=== PATIENT | male | born 1995 | race Caucasian/White ===

== ENCOUNTER 2018-11-10 08:40 | Observation (INO) | payer OTHER ==
[~2018-11-10 08:40] MED LIST: ROCURONIUM BROMIDE INJ 50 MG/5 ML VIAL IV ONE; SUCCINYLCHOLINE CHLORIDE INJ 200 MG/10 ML VIAL ONE
--- NOTE | 2018-11-10 09:04 | ER Document Report ---
ED GI/ - General Mode of Arrival: Ambulatory Information source: Patient TRAVEL OUTSIDE OF THE [place] IN LAST 30 DAYS: No <ROCIO IGNACIO - Last Filed: 11/10/18 09:05> <RELL LAWLER - Last Filed: 11/10/18 11:01> - General Chief Complaint: Abdominal Pain Stated Complaint: STOMACH PAIN Time Seen by Provider: 11/10/18 08:54 Notes: 23-year-old male who presents to the emergency department today with complaints of epigastric and right upper quadrant abdominal pain that has been present intermittently for the last 2-3 months. Patient states that at 0300 this morning he was awoken by this abdominal pain. Patient states that last night he ate [employer] and then around midnight went to [employer]. Patient describes the pain as a "sharp" pain and he notices that his pain is always at night. Patient denies nausea or vomiting. (ROCIO IGNACIO) The patient reports that these middle the night attacks of abdominal pain are increasing in frequency and have caused him to be late getting to work in the morning recently. (RELL LAWLER) - Related Data Allergies/Adverse Reactions: No Known Allergies Allergy (Verified 11/10/18 08:40) Past Medical History - General Information source: Patient - Social History Smoking Status: Never Smoker Cigarette use (# per day): No Frequency of alcohol use: Social Drug Abuse: None Lives with: Family Family History: Reviewed & Not Pertinent <ROCIO IGNACIO - Last Filed: 11/10/18 09:05> Review of Systems - Review of Systems Constitutional: No symptoms reported EENT: No symptoms reported Cardiovascular: No symptoms reported Respiratory: No symptoms reported Gastrointestinal: See HPI, Abdominal pain. denies: Nausea, Vomiting Genitourinary: No symptoms reported Male Genitourinary: No symptoms reported Musculoskeletal: No symptoms reported Skin: No symptoms reported Hematologic/Lymphatic: No symptoms reported Neurological/Psychological: No symptoms reported -: Yes All other systems reviewed and negative <ROCIO IGNACIO - Last Filed: 11/10/18 09:05> Physical Exam <ROCIO IGNACIO - Last Filed: 11/10/18 09:05> - Vital signs Vitals: Temp Pulse Resp BP Pulse Ox 97.7 F 68 16 134/98 H 100 11/10/18 08:44 11/10/18 08:44 11/10/18 08:44 11/10/18 08:44 11/10/18 08:44 - Notes Notes: Physical Exam: General: Alert, appears well. HEENT: Normocephalic. Atraumatic. PERRL. Extraocular movements intact. Oropharynx clear. Neck: Supple. Non-tender. Respiratory: No respiratory distress. Clear and equal breath sounds bilaterally. Cardiovascular: Regular rate and rhythm. Abdominal: Right upper quadrant tenderness to palpation. No distension. Normal Bowel Sounds. Back: Non-tender. No deformity or step off. Extremities: Moves all four extremities. Upper extremities: Normal inspection. Normal ROM. Lower extremities: Normal inspection. No edema. Normal ROM. Neurological: Normal cognition. AAOx4. Normal speech. Psychological: Normal affect. Normal Mood. Skin: Warm. Dry. Normal color. (ROCIO IGNACIO) Course - Laboratory Result Diagrams: 11/10/18 09:18 11/10/18 09:18 - Diagnostic Test Radiology reviewed: Image reviewed, Reports reviewed - Gallbladder ultrasound shows gallstones without common bile duct or intrahepatic duct dilatation or filling defects. There is no gallbladder wall thickening or pericholecystic fluid. - Consults Dr. Reddy Time consulted: 10:30 Consulted provider: will come to ER <RELL LAWLER - Last Filed: 11/10/18 11:01> - Vital Signs Vital signs: Temp Pulse Resp BP Pulse Ox 97.7 F 68 16 134/98 H 100 11/10/18 08:44 11/10/18 08:44 11/10/18 08:44 11/10/18 08:44 11/10/18 08:44 - Laboratory Laboratory results interpreted by me: 11/10/18 11/10/18 09:18 09:18 WBC 14.3 H Seg Neutrophils % 88.4 H Lymphocytes % 6.2 L Absolute Neutrophils 12.7 H Glucose 121 H ALT 19 L Discharge <ROCIO IGNACIO - Last Filed: 11/10/18 09:05> - Discharge Admitting Provider: Surgicalist Unit Admitted: Surgical Floor <RELL LAWLER - Last Filed: 11/10/18 11:01> - Discharge Clinical Impression: Cholelithiasis and cholecystitis without obstruction Qualifiers: Cholelithiasis location: gallbladder Cholecystitis acuity: unspecified acuity Qualified Code(s): K80.10 - Calculus of gallbladder with chronic cholecystitis without obstruction Condition: Stable Disposition: ADMITTED INPATIENT Referrals: RUSTY KABA NP [NURSE PRACTITIONER] - Follow up as needed Scribe Attestation: 11/10/18 09:17 I personally performed the services described in the documentation, reviewed and edited the documentation which was dictated to the scribe in my presence, and it accurately records my words and actions. (RELL LAWLER) Scribe Documentation - Scribe Written by Scribe:: Pepe Lobo, 11/10/2018 0912 acting as scribe for :: Rosaline <ROCIO IGNACIO - Last Filed: 11/10/18 09:05>
[2018-11-10 09:33] LABS: APPEARANCE,URINE CLEAR; BILIRUBIN,URINE NEGATIVE (NEGATIVE); COLOR,URINE YELLOW; GLUCOSE, URINE NEGATIVE (NEGATIVE); KETONES,URINE NEGATIVE (NEGATIVE); LEUKOCYTE ESTERASE,URINE NEGATIVE (NEGATIVE); NITRITE,URINE NEGATIVE (NEGATIVE); PROTEIN,URINE NEGATIVE (NEGATIVE); URINE SPECIFIC GRAVITY 1.017; UROBILINOGEN,URINE NEGATIVE mg/dL (<2.0)
[2018-11-10 09:35] LABS: ABSOLUTE EOSINOPHILS # (AUTO) 0.1 10^3/uL (0.0-0.6); ABSOLUTE LYMPHOCYTES (AUTO) 0.9 10^3/uL (0.5-4.7); ABSOLUTE MONOCYTES (AUTO) 0.7 10^3/uL (0.1-1.4); ABSOLUTE NEUT (AUTO) 12.7 10^3/uL (1.7-8.2); BASOPHILS % (AUTO) 0.2 % (0-2); EOSINOPHILS % (AUTO) 0.4 % (0-6); HEMATOCRIT 42.5 % (37.9-51.0); HEMOGLOBIN 14.8 g/dL (13.5-17.0); LYMPHOCYTES % (AUTO) 6.2 % (13-45); MEAN CORPUSCULAR HEMOGLOBIN 29.8 pg (27.0-33.4); MEAN CORPUSCULAR HGB CONC 34.7 g/dL (32.0-36.0); MEAN CORPUSCULAR VOLUME 86 fl (80-97); MONOCYTES % (AUTO) 4.8 % (3-13); PLATELET COUNT 325 10^3/uL (150-450); RED BLOOD COUNT 4.96 10^6/uL (4.35-5.55); RED CELL DISTRIBUTION WIDTH 12.5 % (11.5-14.0); SEGMENTED NEUTROPHILS % (AUTO) 88.4 % (42-78); TOTAL CELLS COUNTED % (AUTO) 100 %; WHITE BLOOD COUNT 14.3 10^3/uL (4.0-10.5)
[2018-11-10 09:48] LABS: ALANINE AMINOTRANSFERASE 19 U/L (21-72); ALBUMIN 4.5 g/dL (3.5-5.0); ALKALINE PHOSPHATASE 65 U/L (38-126); ANION GAP 10 (5-19); ASPARTATE AMINO TRANSFERASE 17 U/L (17-59); BILIRUBIN,DIRECT 0.2 mg/dL (0.0-0.4); BILIRUBIN,TOTAL 0.4 mg/dL (0.2-1.3); BLOOD UREA NITROGEN 14 mg/dL (7-20); CALCIUM 9.7 mg/dL (8.4-10.2); CARBON DIOXIDE 28 mmol/L (22-30); CHLORIDE 105 mmol/L (98-107); GLUCOSE 121 mg/dL (75-110); POTASSIUM 4.6 mmol/L (3.6-5.0); SODIUM 142.9 mmol/L (137-145); TOTAL PROTEIN 7.3 g/dL (6.3-8.2)
--- NOTE | 2018-11-10 10:06 | RADIOLOGY REPORT (SQ) ---
EXAM DESCRIPTION: U/S ABDOMEN LIMITED W/O DOP COMPLETED DATE/TIME: 11/10/2018 9:58 am REASON FOR STUDY: RUQ abd pain COMPARISON: None. TECHNIQUE: Dynamic and static grayscale images acquired of the abdomen and recorded on PACS. Additio yue selected color Doppler and spectral images recorded. LIMITATIONS: None. FINDINGS: PANCREAS: No masses. Visualized pancreatic duct normal caliber. LIVER: No masses. Echotexture normal. LIVER VASCULATURE: Normal directional flow of the main portal vein and hepatic veins. GALLBLADDER: Echodensity along the dependent wall of gallbladder consistent with gallstones. No thic kening of gallbladder wall. No pericholecystic fluid collection. ULTRASOUND-DETECTED QUINTANA'S SIGN: Negative. INTRAHEPATIC DUCTS AND COMMON DUCT: CBD and intrahepatic ducts normal caliber. No filling defects. INFERIOR VENA CAVA: Normal flow. AORTA: No aneurysm. RIGHT KIDNEY: Normal size. Normal echogenicity. No solid or suspicious masses. No hydronephrosis. No calcifications. PERITONEAL AND RIGHT PLEURAL SPACE: No ascites or effusions. OTHER: No other significant finding. IMPRESSION: GALLSTONES. OTHERWISE NORMAL RIGHT UPPER QUADRANT ULTRASOUND. TECHNICAL DOCUMENTATION: JOB ID: [id number] [employer]- All Rights Reserved Reading location - IP/workstation name: [email or web address]
[2018-11-10] MEDS ORDERED: DEXTROSE 5%-NORMAL SALINE 1,000 ML IV ONE (10:39)
[2018-11-10] MEDS ORDERED: AMPICILLIN SOD/SULBACTAM 3 GM VIAL IV ONE (10:39)
[2018-11-10] MEDS ORDERED: FENTANYL CITRATE INJ/PF 100 MCG/2 ML AMPUL ONE (12:43)
[2018-11-10] MEDS ORDERED: MORPHINE SULFATE 10 MG/ML INJ ONE (12:44)
[2018-11-10] MEDS ORDERED: DEXAMETHASONE SOD PHOSPHATE INJ 4 MG/1 ML VIAL ONE (12:44)
[2018-11-10] MEDS ORDERED: PROPOFOL INJ 200 MG/20 ML VIAL IV ONE (12:44)
[2018-11-10] MEDS ORDERED: MIDAZOLAM 2 MG/2 ML INJ ONE (12:44)
[2018-11-10] MEDS ORDERED: ACETAMINOPHEN 1,000 MG/100 ML RTUPB IV ONE (12:44)
[2018-11-10] MEDS ORDERED: ONDANSETRON HCL INJ/PF 4 MG/2 ML SDV ONE (12:44)
[2018-11-10] MEDS ORDERED: BUPIVACAINE HCL 0.25 % INJ/PF (2.5 MG/1 ML) 30 ML VIAL ONE (12:50)
[2018-11-10] MEDS ORDERED: OXYCODONE-ACETAMINOPHEN 5-325 MG TABLET PO PRN ×2 (13:46)
[2018-11-10] MEDS ORDERED: PROMETHAZINE HCL INJ 25 MG/1 ML VIAL IV PRN ×2 (13:46)
[2018-11-10] MEDS ORDERED: MORPHINE SULFATE 10 MG/ML INJ IV PRN ×2 (13:46→14:15)
[2018-11-10] MEDS ORDERED: DIPHENHYDRAMINE HCL 50 MG/ML VIAL IV PRN (13:46)
[2018-11-10] MEDS ORDERED: FENTANYL CITRATE INJ/PF 100 MCG/2 ML AMPUL IV PRN ×3 (13:46)
[2018-11-10] MEDS ORDERED: MEPERIDINE HCL/PF INJ 25 MG/1 ML DISP.SYRIN IV PRN (13:46)
[2018-11-10] MEDS ORDERED: ONDANSETRON HCL INJ/PF 4 MG/2 ML SDV IV PRN (14:15)
[2018-11-10] MEDS ORDERED: HYDROCODONE/ACETAMINOPHEN 10-325 MG TABLET PO PRN (14:18)
--- NOTE | 2018-11-10 14:25 | Operative Report ---
Nonrecallable Operative Report DATE OF SURGERY: 11/10/18 PREOPERATIVE DIAGNOSIS: Cholecystitis POSTOPERATIVE DIAGNOSIS: Acute cholecystitis OPERATION: Laparoscopic cholecystectomy SURGEON: GIDEON BRADLEY ANESTHESIA: GA TISSUE REMOVED OR ALTERED: Gallbladder COMPLICATIONS: None apparent ESTIMATED BLOOD LOSS: Minimal PROCEDURE: Drains/implants: None. Procedure in detail: After informed consent was obtained, the patient was brought into the operating room and laid in the supine position. The area of the abdomen was prepped and draped in a normal sterile fashion. Dissection was carried through the subcutaneous tissue using sharp and blunt means. The cicatrix was identified, grasped with a Torie clamp, and retracted upwards. The linea alba fascia was incised sharply, the abdomen was entered sharply. The balloon trocar was inserted, and pneumoperitoneum was achieved. A 5 mm subxiphoid port was placed under direct laparoscopic visualization. 2 more 5 mm ports were placed in the right upper quadrant in similar fashion. Atraumatic graspers were placed through the 5 mm ports. The gallbladder was ret racted cephalad and laterally. It was very tense and distended. A cyst aspiration needle was used to aspirate approximately 120 cc of bile from the gallbladder. Once this was completed it was much easier to manipulate the gallbladder. Dissection was begun in the triangle of Calot. The cystic duct and cystic artery were fully visualized and skeletonized, seeing the liver through the triangle. Once the critical view of safety was obtained, the cystic duct and cystic artery were clipped and cut with laparoscopic instruments. The gallbladder was then removed from the liver using Bovie electrocautery. The gallbladder was grasped with a large clamp and pulled out of the umbilicus. The camera was reinserted. The hilum was inspected. It was found to be free of any leakage of blood or bile. The 5 mm trochars were then removed under direct laparoscopic visualization. The supraumbilical trocar was removed and pneumoperitoneum was relieved. The supraumbilical fascia was closed using 0 Vicryl suture in [id number] fashion. The overlying skin was closed using 4-0 Vicryl Rapide suture in subcuticular fashion. Dressings were placed, and the procedure was concluded. All sponge, instrument, and needle counts were correct x2. Condition: Stable.
--- NOTE | 2018-11-10 14:30 | PDOC H&P ---
History of Present Illness Admission Date/PCP: 11/10/18 11:07 Patient complains of: Right upper quadrant pain, nausea, vomiting. History of Present Illness: ALISON ZHANG is a 23 year old male with a 12-hour history of right upper quadrant pain. It is unrelenting and severe. It is sharp and stabbing. Woke him up from sleep last night. The pain does not radiate. He denies back pain. He does report nausea, but denies vomiting. Nothing makes the pain better. Palpation of his abdomen makes the pain worse. Patient denies chest pain, shortness of breath, headache, melena, hematochezia, hematemesis, dizziness, orthostasis, blurry vision, sore throat. Social History Lives with: Family Smoking Status: Never Smoker Frequency of Alcohol Use: Occasional Hx Recreational Drug Use: No - Advance Directive Resuscitation Status: Full Code Family History Family History: Reviewed & Not Pertinent Parental Family History Reviewed: Yes Children Family History Reviewed: Yes Sibling(s) Family History Reviewed.: Yes Medication/Allergy Allergies/Adverse Reactions: No Known Allergies Allergy (Verified 11/10/18 08:40) Review of Systems Constitutional: ABSENT: anorexia, chills, fatigue Eyes: ABSENT: visual disturbances Ears: ABSENT: hearing changes Nose, Mouth, and Throat: ABSENT: sore throat Cardiovascular: ABSENT: chest pain, palpitations Respiratory: ABSENT: cough, dyspnea Gastrointestinal: PRESENT: abdominal pain, nausea. ABSENT: hematemesis, hematochezia, melena Genitourinary: ABSENT: dysuria Musculoskeletal: ABSENT: back pain Neurological: ABSENT: abnormal speech, confusion, convulsions, dizziness Psychiatric: ABSENT: anxiety, depression Endocrine: ABSENT: cold intolerance, heat intolerance Hematologic/Lymphatic: ABSENT: easy bleeding, easy bruising Physical Exam Vital Signs: Temp Pulse Resp BP Pulse Ox 98.9 F 89 18 101/64 99 11/10/18 11:20 11/10/18 11:20 11/10/18 11:20 11/10/18 11:20 11/10/18 11:20 Intake & Output 11/09/18 11/10/18 11/11/18 06:59 06:59 06:59 Weight 76.2 kg General appearance: PRESENT: no acute distress Head exam: PRESENT: atraumatic, normocephalic Eye exam: PRESENT: EOMI, PERRLA. ABSENT: scleral icterus Mouth exam: PRESENT: moist, neck supple Teeth exam: ABSENT: poor dentation Neck exam: ABSENT: meningismus, tenderness, thyromegaly, tracheal deviation Respiratory exam: PRESENT: clear to auscultation nellie, unlabored. ABSENT: chest wall tenderness, retraction, rhonchi, tachypnea, wheezes Cardiovascular exam: PRESENT: RRR Pulses: PRESENT: normal radial pulses Vascular exam: PRESENT: normal capillary refill. ABSENT: pallor GI/Abdominal exam: PRESENT: Bob's sign, soft, tenderness - Right upper quadrant. ABSENT: distended Rectal exam: PRESENT: deferred Gentrourinary exam: ABSENT: erythema Extremities exam: ABSENT: clubbing Musculoskeletal exam: ABSENT: deformity Neurological exam: PRESENT: alert, awake, oriented to person, oriented to place, oriented to time, oriented to situation, CN II-XII grossly intact Psychiatric exam: ABSENT: agitated, anxious, depressed Focused psych exam: ABSENT: delusional Skin exam: ABSENT: cyanosis, erythema, jaundice Results Laboratory Results: 11/10/18 09:18 11/10/18 09:18 11/10/18 11/10/18 11/10/18 09:18 09:18 09:18 WBC 14.3 H RBC 4.96 Hgb 14.8 Hct 42.5 MCV 86 MCH 29.8 MCHC 34.7 RDW 12.5 Plt Count 325 Seg Neutrophils % 88.4 H Lymphocytes % 6.2 L Monocytes % 4.8 Eosinophils % 0.4 Basophils % 0.2 Absolute Neutrophils 12.7 H Absolute Lymphocytes 0.9 Absolute Monocytes 0.7 Absolute Eosinophils 0.1 Absolute Basophils 0.0 Sodium 142.9 Potassium 4.6 Chloride 105 Carbon Dioxide 28 Anion Gap 10 BUN 14 Creatinine 0.95 Est GFR ( Amer) > 60 Est GFR (Non-Af Amer) > 60 Glucose 121 H Calcium 9.7 Total Bilirubin 0.4 AST 17 ALT 19 L Alkaline Phosphatase 65 Total Protein 7.3 Albumin 4.5 Urine Color YELLOW Urine Appearance CLEAR Urine pH 5.0 Ur Specific [place]ateros 1.017 Urine Protein NEGATIVE Urine Glucose (UA) NEGATIVE Urine Ketones NEGATIVE Urine Blood NEGATIVE Urine Nitrite NEGATIVE Ur Leukocyte Esterase NEGATIVE Urine WBC (Auto) 0 Urine RBC (Auto) 0 Impressions: Abdomen Ultrasound 11/10/18 09:04 IMPRESSION: GALLSTONES. OTHERWISE NORMAL RIGHT UPPER QUADRANT ULTRASOUND. Assessment & Plan - Diagnosis (1) Acute cholecystitis Is this a current diagnosis for this admission?: Yes - Plan Summary Plan Summary: There is a 23-year-old male with right upper quadrant pain, nausea, leukocytosis, and gallstones. I believe the patient is experiencing acute ch olecystitis. I have recommended he undergo cholecystectomy as definitive treatment. The patient has agreed to this. Risks/benefits discussed, informed consent obtained, and all questions answered.
--- NOTE | 2018-11-10 18:14 | PDOC DISCHARGE SUMMARY ---
General - Admit/Disc Date/PCP Admission Date/Primary Care Provider: 11/10/18 11:07 Discharge Date: 11/10/18 - Discharge Diagnosis (1) Acute cholecystitis Is this a current diagnosis for this admission?: Yes - Additional Information Resuscitation Status: Full Code Discharge Diet: As Tolerated Discharge Activity: No Lifting Over 10 Pounds Home Medications: No Home Medications 11/10/18 History of Present Illness History of Present Illness: ALISON ZHANG is a 23 year old male with a 12-hour history of right upper quadrant pain. It is unrelenting and severe. It is sharp and stabbing. Woke him up from sleep last night. The pain does not radiate. He denies back pain. He does report nausea, but denies vomiting. Nothing makes the pain better. Palpation of his abdomen makes the pain worse. Patient denies chest pain, shortness of breath, headache, melena, hematochezia, hematemesis, dizziness, orthostasis, blurry vision, sore throat. Hospital Course Hospital Course: The patient was admitted to the hospital and taken to the operating room for laparoscopic cholecystectomy. The operation went well and the patient was taken to the floor in stable condition. On the floor, the patient began ambulating, tolerating a diet, and his pain was controlled. At this time it is felt that he has reached maximal hospital benefit and is fit for discharge. Physical Exam Vital Signs: Temp Pulse Resp BP Pulse Ox 98.0 F 111 H 16 121/74 99 11/10/18 17:57 11/10/18 17:57 11/10/18 17:57 11/10/18 17:57 11/10/18 17:57 Intake & Output 11/09/18 11/10/18 11/11/18 06:59 06:59 06:59 Intake Total 2600 Output Total 10 Balance 2590 Weight 76.2 kg Results Laboratory Results: 11/10/18 09:18 11/10/18 09:18 11/10/18 11/10/18 11/10/18 09:18 09:18 09:18 WBC 14.3 H RBC 4.96 Hgb 14.8 Hct 42.5 MCV 86 MCH 29.8 MCHC 34.7 RDW 12.5 Plt Count 325 Seg Neutrophils % 88.4 H Lymphocytes % 6.2 L Monocytes % 4.8 Eosinophils % 0.4 Basophils % 0.2 Absolute Neutrophils 12.7 H Absolute Lymphocytes 0.9 Absolute Monocytes 0.7 Absolute Eosinophils 0.1 Absolute Basophils 0.0 Sodium 142.9 Potassium 4.6 Chloride 105 Carbon Dioxide 28 Anion Gap 10 BUN 14 Creatinine 0.95 Est GFR ( Amer) > 60 Est GFR (Non-Af Amer) > 60 Glucose 121 H Calcium 9.7 Total Bilirubin 0.4 AST 17 ALT 19 L Alkaline Phosphatase 65 Total Protein 7.3 Albumin 4.5 Urine Color YELLOW Urine Appearance CLEAR Urine pH 5.0 Ur Specific Thayer 1.017 Urine Protein NEGATIVE Urine Glucose (UA) NEGATIVE Urine Ketones NEGATIVE Urine Blood NEGATIVE Urine Nitrite NEGATIVE Ur Leukocyte Esterase NEGATIVE Urine WBC (Auto) 0 Urine RBC (Auto) 0 Impressions: Abdomen Ultrasound 11/10/18 09:04 IMPRESSION: GALLSTONES. OTHERWISE NORMAL RIGHT UPPER QUADRANT ULTRASOUND. Qualifiers - * PATIENT BEING DISCHARGED WITH ANY OF THE FOLLOWING DIAGNOSIS: No Plan Discharge Plan: Discharge home. Diet as tolerated. Activity: No lifting greater than 10 pounds x 2 weeks. Follow-up with me in 2 weeks at [facility]. Gunter 10/325 mg p.o. every 6 hours as needed for pain. No tub baths or swimming pools times 2 weeks. Time Spent: Less than 30 Minutes
[2018-11-10 18:28] VITALS: BP 101/64
== END 2018-11-10 19:17 | disposition home or self-care (01) ==
LOC: ER 08:40 → INTOOBSV 11:07 → EH 11:07 → 2N 15:26
PROVIDERS: ADMIT Surgery; ATTEND Surgery
PROC: 0FT44ZZ Resection of Gallbladder, Percutaneous Endoscopic Approach (ICD-10-PCS; principal; 2018-11-10 13:00)
DX: K81.0 Acute cholecystitis (principal); Z23 Encounter for immunization
CPT/HCPCS: 99285; 36415; 85025; 80053; 81001; 88304 ×2; 76705; 90686; 47562; G0008; J2250; J3490; J1100; J3010; J0295; J2270; J0330; J2405; J2704; J0131; 790; 90471; G0378